=== PATIENT | male | born 1945 | race Caucasian/White ===

== ENCOUNTER 2024-02-13 20:19 | Emergency (ER) | payer MEDICARE, OTHER ==
[2024-02-13 21:38] LABS: Influenza A by NAA Not Detected (NotDetected); Influenza B by NAA Not Detected (NotDetected); SARS-CoV-2 NAA Rapid Test DETECTED (NotDetected)
[2024-02-13] MEDS ORDERED: Ibuprofen 200 MG TAB ONE (22:26)
== END 2024-02-13 22:32 | disposition home or self-care (01) ==
LOC: CSHERS 20:19
DX: U07.1 COVID-19 (principal); I10 Essential (primary) hypertension; E78.5 Hyperlipidemia, unspecified; Z79.899 Other long term (current) drug therapy; Z79.82 Long term (current) use of aspirin
CPT/HCPCS: 0240U; 71046